=== PATIENT | female | born 1965 ===

== ENCOUNTER 2018-09-29 14:03 | Emergency (ER) | payer BC ==
[2018-09-29] MEDS ORDERED: guaiFENesin 100 mg/5 ml Syrup UD PO STA (14:29)
[2018-09-29] MEDS ORDERED: guaiFENesin 100 mg/5 ml Syrup UD ONE (14:41)
[2018-09-29 15:36] VITALS: PULSE 98
--- NOTE | 2018-09-29 15:38 | C.PDOC ---
History Of Present Illness 53 year old female presents to the ED complaining of sudden onset of sore throat, nose congestion, headache, and fever for one day. Reports lack of appetite but states she has been drinking fluids at home. Denies any sick contacts or recent travels. Denies any nausea, vomiting, diarrhea, cough, shortness of breath, or any other symptoms. Time Seen by Provider: 09/29/18 14:16 Chief Complaint (Nursing): GI Problem History/Exam Limitations: no limitations Onset/Duration Of Symptoms: Days (1) Current Symptoms Are (Timing): Still Present Location Of Pain: Throat, Headache Sick Contacts (Context): None Associated Symptoms: Fever, Sore Throat, Nasal Congestion. denies: Cough, Nausea, Vomiting, Diarrhea Ear Symptoms: Bilateral: None Past Medical History Reviewed: Historical Data, Nursing Documentation, Vital Signs Vital Signs: Last Vital Signs Temp 102.7 F H 09/29/18 15:35 Pulse 98 H 09/29/18 15:35 Resp 18 09/29/18 15:35 BP 135/89 09/29/18 15:35 Pulse Ox 95 09/29/18 15:35 Family History: States: No Known Family Hx - Social History Hx Alcohol Use: No Hx Substance Use: No - Immunization History Hx Tetanus Toxoid Vaccination: No Hx Influenza Vaccination: No Hx Pneumococcal Vaccination: No Review Of Systems Except As Marked, All Systems Reviewed And Found Negative. Constitutional: Positive for: Fever ENT: Positive for: Nose Congestion, Throat Pain Cardiovascular: Negative for: Chest Pain Respiratory: Negative for: Shortness of Breath Gastrointestinal: Negative for: Nausea, Vomiting, Diarrhea Neurological: Positive for: Headache Physical Exam - Physical Exam Appears: Non-toxic, No Acute Distress Skin: Warm, Dry, No Rash Head: Normacephalic Eye(s): bilateral: Normal Inspection Ear(s): Bilateral: Normal Nose: Other (congestion ) Oral Mucosa: Moist Tongue: Normal Appearing Lips: Normal Appearing Teeth: Normal Dentition Throat: Other (pharyngitis, oropharyngeal erythema, no discharge ) Neck: Supple Chest: Symmetrical Cardiovascular: Rhythm Regular Respiratory: Normal Breath Sounds, No Rales, No Rhonchi, No Wheezing ED Course And Treatment O2 Sat by Pulse Oximetry: 95 (RA) Pulse Ox Interpretation: Normal Medical Decision Making Medical Decision Making: Impression: viral syndrome, prob influenza Plan - Robitussin 100mg PO - Motrin 600mg PO - Tamiflu 75mg PO - Sudafed 30mg PO Patient instructed to start Tamiflu empirically. educated to remove infants from the same household due to highly contagious and more serious in infants. On reeval, patient reports improvement of symptoms. Instructed to return to ER if symptoms worsen or new symptoms arise. Disposition Doctor Will See Patient In The: Office Counseled Patient/Family Regarding: Studies Performed, Diagnosis - Disposition Referrals: [facility] [Outside] [facility] [Outside] [facility] [Outside] Disposition: HOME/ ROUTINE Disposition Time: 15:38 Condition: GOOD Additional Instructions: Sigue Dayquil/Nyquil para las sintomas de syndrome viral usualment 4 veces al tyrese y 2 veces al noche Las sintomas van a durar 7-11 knott Tamiflu 75 mg dos veces al tyrese trabaja contra la Influenza Elza mario agua/Gatorade Dieta blanda Sigue con la Clinica Familiar piotr necessario Prescriptions: Oseltamivir Cap [Tamiflu] 75 mg PO BID #9 cap Instructions: Flu, Adult (DC), Viral Syndrome (DC) Forms: [employer] (Citizen Of [place]) Print Language: WELSH - Clinical Impression Clinical Impression: Viral syndrome - Scribe Statement The provider has reviewed the documentation as recorded by the Scribe Ashely Do All medical record entries made by the Scribe were at my direction and personally dictated by me. I have reviewed the chart and agree that the record accurately reflects my personal performance of the history, physical exam, medical decision making, and the department course for this patient. I have also personally directed, reviewed, and agree with the discharge instructions and disposition.
[2018-09-29 16:02] VITALS: BP 124/81; RESP 20; TEMP 100.1
[2018-09-29 19:24] VITALS: O2SAT 95
== END 2018-09-29 16:16 | disposition home or self-care (01) ==
LOC: C.ER 14:03
DX: B34.9 Viral infection, unspecified (principal)